=== PATIENT | male | born 1950 | race Caucasian/White ===

== ENCOUNTER 2024-11-23 17:09 | Emergency (ER) | payer MEDICARE ==
[~2024-11-23] VITALS: Ht 182.9 cm; Wt 121.1 kg
[2024-11-23 18:38] VITALS: PULSE 75; RESP 18; TEMP 97.1
[2024-11-23 19:18] VITALS: BP 170/81; O2SAT 100
== END 2024-11-23 19:21 | disposition home or self-care (01) ==
LOC: ER 19:08
DX: Z46.6 Encounter for fitting and adjustment of urinary device (principal); I10 Essential (primary) hypertension; E11.9 Type 2 diabetes mellitus without complications; Z87.19 Personal history of other diseases of the digestive system; Z95.810 Presence of automatic (implantable) cardiac defibrillator
CPT/HCPCS: 99283